=== PATIENT | female | born 1940 | race Caucasian/White ===

== ENCOUNTER 2019-04-07 01:03 | Emergency (ER) | payer MEDICARE, OTHER, SELFPAY ==
[2019-04-07 13:50] VITALS: BP 125/80; PULSE 90; RESP 20; TEMP 36.9; O2SAT 98
--- NOTE | 2019-04-07 15:18 | PC.NURSE ---
1420 provider with pt
--- NOTE | 2019-04-07 16:20 | ED.URI ---
HPI - URI/Sore Throat General Chief Complaint: Upper Respiratory Infection Stated Complaint: Cough/Rattling Time Seen by Provider: 04/07/19 14:15 Source: patient Mode of arrival: ambulatory Limitations: no limitations History of Present Illness HPI Narrative: Jania Hays is a 79 yo female with a PMH of depression, hypothyroid, COPD, HTN, who comes to the urgent care with complaints of ongoing cough and wheezing x10 days. Patient has a long history of COPD and lung disease; states that the prednisone Zithromax are usually given to her when her wheezing and cough continue for greater than 5 to 7 days Related Data Home Medications Medication Instructions Recorded Confirmed atorvastatin 04/07/19 ezetimibe mg 04/07/19 fluoxetine mg 04/07/19 fluoxetine mg 04/07/19 fluoxetine mg 04/07/19 levothyroxine 04/07/19 montelukast mg 04/07/19 montelukast mg 04/07/19 potassium chloride meq PO 04/07/19 potassium chloride meq PO 04/07/19 triamterene-hydrochlorothiazid tablet 04/07/19 Allergies Allergy/AdvReac Type Severity Reaction Status Date / Time hydrocodone Allergy Mild Nausea Verified 07/19/17 14:14 Review of Systems Review of Systems: Narrative: CONSTITUTIONAL: Denies fever, chills, sweats. EYES: Denies visual changes, redness, discharge. ENT: Denies rhinorrhea, has congestion, no sore throat, otalgia. CARDIOVASCULAR: Denies chest pain, palpitations, edema. RESPIRATORY: Has dyspnea, wheezing, cough GASTROINTESTINAL: Denies abdominal pain, nausea, vomiting, diarrhea. GENITOURINARY: Denies dysuria, hematuria, abnormal discharge SKIN: Denies rash or itching. MUSCULOSKELETAL: Denies acute back pain, joint pain, or myalgia. NEUROLOGIC: Denies numbness, or focal weakness. PSYCHIATRIC: Denies anxiety or depression. [facility] Family History Family History Other No active medical problems Social History Social History (Updated 04/07/19 @ 16:25 by Zelda Ramirez CNP) Second hand tobacco smoke exposure: Yes Alcohol intake: never Comments At time of signature, I agree with nursing past medical, surgical, social and family history. There is no relevant family history pertinent to the presenting complaint. Exam Narrative: Exam Narrative: GENERAL: This is a well-nourished, well-developed patient, in moderate distress. HEAD: normocephalic, atraumatic. EYES: Sclera clear/white. Vision is grossly intact. EARS: External ears normal, auditory canals clear and without drainage, TMs normal without perforation. Hearing grossly intact. NOSE: External nose normal with no obvious nasal discharge, nares without redness, no rhinorrhea. THROAT: Mucous membranes moist, posterior pharynx erythema. NECK: Neck supple, non-tender CARDIOVASCULAR: Regular rate and rhythm without murmurs, gallops, or rubs. RESPIRATORY: Diminished to auscultation. Breath sounds equal bilaterally. Diffuse wheezes, no rales, or rhonchi. GASTROINTESTINAL: Abdomen soft, non-tender, nondistended. Bowel sounds are active. SKIN: warm, intact with no suspicious lesions or rash, good texture and turgor. NEURO: awake, alert, and oriented to person, place and time. There were no obvious focal neurologic abnormalities. Steady gait EXTREMITIES: Normal range of motion. No edema. BACK: Nontender without deformity or crepitance. . Course Course Emergency Course: Unable to do chest x-ray are other treatments here as the system down Given patient prednisone Zithromax and Delsym To follow-up with primary care physician Vital Signs Vital signs: Vital Signs Temperature 98.4 F 04/07/19 13:50 Pulse Rate 90 04/07/19 13:50 Respiratory Rate 20 04/07/19 13:50 Blood Pressure 125/80 04/07/19 13:50 Pulse Oximetry 98 04/07/19 13:50 Temperature 98.4 F 04/07/19 13:50 Pulse Rate 90 04/07/19 13:50 Respiratory Rate 20 04/07/19 13:50 Blood Pressure 125/80 04/07/19 13:50 Pulse
== END 2019-04-07 14:45 | disposition home or self-care (01) ==
LOC: EXPCOLL 13:31
PROVIDERS: Emergency Provider Nurse Practitioner
DX: J40 Bronchitis, not specified as acute or chronic (principal); F32.9 Major depressive disorder, single episode, unspecified; E03.9 Hypothyroidism, unspecified; J44.9 Chronic obstructive pulmonary disease, unspecified; I10 Essential (primary) hypertension
CPT/HCPCS: 99213; G0463

== ENCOUNTER 2019-04-14 11:09 | Emergency (ER) | payer MEDICARE, OTHER, SELFPAY ==
[2019-04-14 11:22] VITALS: BP 128/80; PULSE 102; RESP 18; TEMP 36.2; O2SAT 100
--- NOTE | 2019-04-14 11:30 | ED.DIZZY ---
HPI - Dizziness General Chief Complaint: Dizziness Stated Complaint: Dizzy Time Seen by Provider: 04/14/19 11:31 Source: patient, family and RN notes reviewed Mode of arrival: ambulatory Limitations: no limitations History of Present Illness HPI Narrative: 79 year old female accompanied by friend presents to express care with complaints of dizziness and vertigo for the past 2 days. Patient states that she was treated for URI on the 07 of April with symptoms improved but ears feel full like she is in a tunnel, concerned she may have inner ear problem. Patient denies any headache pain, states some nausea when she experiences vertigo, usually is worse when she lyes down. Patient has history of hypertension and is on triamterene/HCTZ daily orthostatic blood pressures performed with drop in blood pressure noted with standing patient admits to not drinking fluids well. Patient has equal handgrips, speech is clear, she is alert and oriented, moves all extremities on own power, face is symmetrical, tongue is midline. MD elicited complaint: dizziness and vertigo Pertinent past history: inner ear problems and other (recent URI/bronchitis) Onset (ago): day(s) (2) Timing: gradual onset Severity: moderate Description: room spinning , lightheadedness and off-balance Context: recent illness History of similar symptoms: Yes (5 years ago) Exacerbating factors: movement/ambulation and position/lying down Relieving factors: rest and other (keeping head elevated helps) Associated symptoms: nausea, change in hearing, tinnitus and ear fullness Associated neuro symptoms: other (dizziness) Stroke scale total: 0 Related Data Home Medications Medication Instructions Recorded Confirmed atorvastatin 04/07/19 ezetimibe mg 04/07/19 fluoxetine mg 04/07/19 levothyroxine 04/07/19 montelukast mg 04/07/19 potassium chloride meq PO 04/07/19 triamterene-hydrochlorothiazid tablet 04/07/19 aspirin 04/14/19 budesonide-formoterol [Symbicort] INHALATION 04/14/19 04/14/19 magnesium 04/14/19 omeprazole 04/14/19 Allergies Allergy/AdvReac Type Severity Reaction Status Date / Time hydrocodone Allergy Mild Nausea Verified 07/19/17 14:14 Review of Systems Review of Systems: Narrative: CONSTITUTIONAL: Denies fever, chills, or sweats. EYES: Denies visual changes, redness, or discharge. ENT: Denies rhinorrhea, congestion, sore throat, or otalgia, states ears feel full, feels like in a tunnel CARDIOVASCULAR: Denies chest pain, palpitations, or edema. RESPIRATORY: Denies cough or dyspnea. GASTROINTESTINAL: Denies abdominal pain, occasional nausea, no vomiting, or diarrhea. GENITOURINARY: Denies dysuria or hematuria. SKIN: Denies rash or itching. MUSCULOSKELETAL: Denies back pain, joint pain, or myalgia. NEUROLOGIC: Denies headache, numbness, or weakness, room spinning when lying down,dizziness with position changes PSYCHIATRIC: Denies anxiety or depression. All systems reviewed & are unremarkable except as noted in HPI and below PMFSH Past Medical History Medical History (Updated 04/18/19 @ 10:50 by Amelia Hopkins NP) Bronchitis CAD (coronary artery disease) COPD mixed type Hypertension Hypothyroid Family History Family History Other No active medical problems Social History Social History (Updated 04/18/19 @ 10:38 by Amelia Hopkins NP) Second hand tobacco smoke exposure: Yes Alcohol intake: never Living arrangements: with family Occupation/Education: retired Gender identity (if verbalized by the patient): Female Comments At time of signature, agree with nursing past medical, social history. There is no relevant family history pertinent to the presenting complaint Exam Narrative: Exam Narrative: GENERAL: Well-appearing, well-nourished, and in no acute distress. HEAD: Normocephalic, atraumatic. EYES: PERRLA and EOMI. ENT: Nares clear, no rhinorrhea or epistaxi
[2019-04-14 12:04] VITALS: BP 129/73; PULSE 88
[2019-04-14 12:05] VITALS: BP 120/72; PULSE 97
[2019-04-14 12:06] VITALS: BP 99/69; PULSE 104
== END 2019-04-14 12:11 | disposition home or self-care (01) ==
PROVIDERS: Emergency Provider Registered Nurse
DX: I95.1 Orthostatic hypotension (principal); H83.09 Labyrinthitis, unspecified ear; I25.10 Atherosclerotic heart disease of native coronary artery without angina pectoris; I10 Essential (primary) hypertension; E03.9 Hypothyroidism, unspecified; J44.9 Chronic obstructive pulmonary disease, unspecified
CPT/HCPCS: 99213; G0463

== ENCOUNTER 2019-05-16 16:08 | Emergency (ER) | payer MEDICARE, OTHER, SELFPAY ==
--- NOTE | 2019-05-16 16:14 | ED.EAR ---
HPI - Ear Problem General Chief complaint: Ear Stated complaint: inner ear problems Time Seen by Provider: 05/16/19 16:24 Source: patient and RN notes reviewed Mode of arrival: ambulatory Limitations: no limitations History of Present Illness HPI Narrative: 79-year-old female presents with concern for itchy, full feeling left ear. Report symptoms for 3 to 4 days. She reports feeling of dizziness combined with ear fullness for which she took meclizine with no relief. She reports nasal congestion and rhinorrhea. She denies fever, malaise, chills, sweats, headache, ear discharge. MD Complaint: other (Ear fullness) Related Data Home Medications Medication Instructions Recorded Confirmed atorvastatin 04/07/19 ezetimibe mg 04/07/19 fluoxetine mg 04/07/19 levothyroxine 04/07/19 montelukast mg 04/07/19 potassium chloride meq PO 04/07/19 triamterene-hydrochlorothiazid tablet 04/07/19 aspirin 04/14/19 budesonide-formoterol [Symbicort] INHALATION 04/14/19 04/14/19 magnesium 04/14/19 omeprazole 04/14/19 Allergies Allergy/AdvReac Type Severity Reaction Status Date / Time hydrocodone Allergy Mild Nausea Verified 07/19/17 14:14 Review of Systems Review of Systems: Narrative: CONSTITUTIONAL: Denies malaise, chills, sweats, or fever. EYES: Denies visual changes, redness, or discharge. ENT: Reports rhinorrhea, ear fullness and itchiness, nasal congestion. Denies sinus pain and sore throat. CARDIOVASCULAR: Denies chest pain, palpitations, or edema. RESPIRATORY: Denies cough or dyspnea. GASTROINTESTINAL: Denies abdominal pain, nausea, vomiting, diarrhea SKIN: Denies rash or itching. MUSCULOSKELETAL: Denies myalgia. NEUROLOGIC: Denies headache. All systems reviewed & are unremarkable except as noted in HPI and below PMFSH Past Medical History Medical History (Updated 05/16/19 @ 16:34 by Mariela Kim NP) Bronchitis CAD (coronary artery disease) COPD mixed type Hypertension Hypothyroid Social History Social History (Updated 04/18/19 @ 10:38 by Amelia Hopkins NP) Second hand tobacco smoke exposure: Yes Alcohol intake: never Gender identity (if verbalized by the patient): Female Comments At time of signature, agree with nursing past medical, surgical, social and family history. There is no relevant family history pertinent to the presenting complaint Exam Narrative: Exam Narrative: GENERAL: Well-appearing, well-nourished, and in no acute distress. HEAD: Normocephalic EYES: PERRLA, conjunctivae clear ENT: Nares clear, turbinates edematous and erythematous, clear discharge. Mucous membranes moist. TM pearly kimble with dull light reflex and left otitis effusion; no tragal tenderness. Oropharynx not erythematous without lesions. Tonsils not enlarged and without exudate, no drooling, no hoarseness, no trismus, uvula midline. NECK: Supple. No lymphadenopathy CHEST: Clear to auscultation, breath sounds equal. No wheezing, rhonchi, rales, or stridor. No respiratory distress, speaks in full sentences. HEART: Regular rate and rhythm. No murmur heard. SKIN: Warm, dry, no rash. NEURO: Alert and oriented x3. PSYCH: Normal mood and affect Course Course Emergency Course: Patient is aware of diagnosis, understands and agrees to treatment plan. Anticipatory guidance given. Patient agrees to follow-up as directed and is aware of reasons to seek care at the emergency department. Portions of this record may have been created with voice recognition software Vital Signs Vital signs: Vital Signs Temperature 97.0 F L 05/16/19 16:21 Pulse Rate 88 05/16/19 16:21 Respiratory Rate 18 05/16/19 16:21 Blood Pressure 142/75 H 05/16/19 16:21 Pulse Oximetry 99 05/16/19 16:21 Temperature 97.0 F L 05/16/19 16:21 Pulse Rate 88 05/16/19 16:21 Respiratory Rate 18 05/16/19 16:21 Blood Pressure 142/75 H 05/16/19 16:21 Pulse Oximetry 99 05/16/19 16:21 Reviewed. Medical Decision Making [place] [facility]
[2019-05-16 16:21] VITALS: BP 142/75; PULSE 88; RESP 18; TEMP 36.1; O2SAT 99
== END 2019-05-16 16:39 | disposition home or self-care (01) ==
PROVIDERS: Emergency Provider Nurse Practitioner
DX: H93.92 Unspecified disorder of left ear (principal); I25.10 Atherosclerotic heart disease of native coronary artery without angina pectoris; J44.9 Chronic obstructive pulmonary disease, unspecified; I10 Essential (primary) hypertension; E03.9 Hypothyroidism, unspecified
CPT/HCPCS: 99211; G0463

== ENCOUNTER 2019-12-15 13:30 | Emergency (ER) | payer MEDICARE, OTHER, SELFPAY ==
--- NOTE | 2019-12-15 13:40 | ED.GENADULT ---
HPI - General Adult General Chief complaint: Dental/Oral Stated complaint: sores on gumline Time Seen by Provider: 12/15/19 13:41 Source: patient Mode of arrival: ambulatory Limitations: no limitations History of Present Illness HPI narrative: 79-year-old female patient presents to the [facility] with complaints of mouth sores to her gums for the past 10 days. Denies any fevers, body aches or chills. Denies any discharge coming from the sores. Denies any dental pain. Patient denies being sick recently. Patient states she has been under some stress recently due to recent events. Patient states she has been using some warm salt water to clean the areas with. Related Data Home Medications Medication Instructions Recorded Confirmed atorvastatin 80 mg PO DAILY 04/07/19 05/16/19 ezetimibe 10 mg PO DAILY 04/07/19 05/16/19 fluoxetine 20 mg PO DAILY 04/07/19 05/16/19 montelukast 10 mg PO DAILY 04/07/19 05/16/19 potassium chloride 10 meq PO DAILY 04/07/19 05/16/19 triamterene-hydrochlorothiazid 37.5 tablet PO DAILY 04/07/19 05/16/19 aspirin 81 mg PO DAILY 04/14/19 05/16/19 budesonide-formoterol [Symbicort] 160 inh INHALATION BID 04/14/19 05/16/19 magnesium 250 mg PO DAILY 04/14/19 05/16/19 omeprazole 20 mg PO DAILY 04/14/19 05/16/19 levothyroxine 125 mg PO DAILY 12/15/19 12/15/19 Allergies Allergy/AdvReac Type Severity Reaction Status Date / Time hydrocodone Allergy Mild Nausea Verified 07/19/17 14:14 Review of Systems Review of Systems: Narrative: CONSTITUTIONAL: Denies fever, chills, or sweats. EYES: Denies visual changes, redness, or discharge. ENT: Denies rhinorrhea, congestion, sore throat, or otalgia. Positive sores to mouth x10 days CARDIOVASCULAR: Denies chest pain, palpitations, or edema. RESPIRATORY: Denies cough or dyspnea. GASTROINTESTINAL: Denies abdominal pain, nausea, vomiting, or diarrhea. GENITOURINARY: Denies dysuria or hematuria. SKIN: Denies rash or itching. MUSCULOSKELETAL: Denies back pain, joint pain, or myalgia. NEUROLOGIC: Denies headache, numbness, or weakness. PSYCHIATRIC: Denies anxiety or depression. [facility] Past Medical History Medical History Bronchitis CAD (coronary artery disease) COPD mixed type Hypertension Hypothyroid Family History Family History Other No active medical problems Social History Social History Second hand tobacco smoke exposure: Yes Alcohol intake: never Gender identity (if verbalized by the patient): Female Comments At the time of my signature I agree with nursing past medical history, surgical, social, and family history. There is no relevant family history pertinent to the presenting complaint. Exam Narrative: Exam Narrative: GENERAL: Well-appearing, well-nourished, and in no acute distress. HEAD: Normocephalic, atraumatic. EYES: PERRLA and EOMI. ENT: Nares clear, no rhinorrhea or epistaxis. Mucous membranes moist. Patient has ulcers noted to the bottom left gumline with slight erythema as well as another ulcer noted to the middle of the upper gum. No dental caries noted. No dental abscesses noted. NECK: Supple. No lymphadenopathy CHEST: Clear to auscultation. No respiratory distress. HEART: Regular rate and rhythm. No murmur heard. Normal peripheral pulses. ABDOMEN: Soft, nontender, nondistended, normal active bowel sounds. EXTREMITIES: Normal range of motion. No edema. SKIN: Warm, dry, no rash. NEURO: No focal deficits. Alert and oriented x3. Course Vital Signs Vital signs: Vital Signs Temperature 36.6 C 12/15/19 13:42 Pulse Rate 100 12/15/19 13:42 Respiratory Rate 18 12/15/19 13:42 Blood Pressure 113/69 12/15/19 13:42 Pulse Oximetry 98 12/15/19 13:42 Temperature 36.6 C 12/15/19 13:42 Pulse Rate 100 12/15/19 13:42 Respiratory Rate 18 12/15/19 13:
[2019-12-15 13:42] VITALS: BP 113/69; PULSE 100; RESP 18; TEMP 36.6; O2SAT 98
== END 2019-12-15 14:01 | disposition home or self-care (01) ==
PROVIDERS: Emergency Provider Nurse Practitioner Family
DX: K12.0 Recurrent oral aphthae (principal); I51.0 Cardiac septal defect, acquired; J44.9 Chronic obstructive pulmonary disease, unspecified; I10 Essential (primary) hypertension; E03.9 Hypothyroidism, unspecified
CPT/HCPCS: 99211; G0463

== ENCOUNTER 2019-12-30 14:19 | Emergency (ER) | payer MEDICARE, OTHER, SELFPAY ==
[2019-12-30 14:30] VITALS: BP 133/72; PULSE 96; RESP 16; TEMP 36.8; O2SAT 98
--- NOTE | 2019-12-30 14:48 | ED.FEMALEGU ---
HPI - Female Genitourinary General Chief complaint: Urogenital-Female Stated complaint: UTI Time Seen by Provider: 12/30/19 14:43 Source: patient and RN notes reviewed Mode of arrival: ambulatory Limitations: no limitations History of Present Illness HPI Narrative: Patient presents today with a 4-day history of dysuria. She also sees white specks in her urine. Denies pelvic pain, back pain, fever, chills, hematuria, nausea or vomiting, urinary frequency. Denies history of frequent UTIs. She has been taking cranberry pills with some relief. MD elicited complaint: dysuria Related Data Home Medications Medication Instructions Recorded Confirmed atorvastatin 80 mg PO DAILY 04/07/19 12/30/19 ezetimibe 10 mg PO DAILY 04/07/19 12/30/19 fluoxetine 20 mg PO DAILY 04/07/19 12/30/19 montelukast 10 mg PO DAILY 04/07/19 12/30/19 potassium chloride 10 meq PO DAILY 04/07/19 12/30/19 triamterene-hydrochlorothiazid 37.5 tablet PO DAILY 04/07/19 12/30/19 aspirin 81 mg PO DAILY 04/14/19 12/30/19 budesonide-formoterol [Symbicort] 160 inh INHALATION BID 04/14/19 12/30/19 omeprazole 20 mg PO DAILY 04/14/19 12/30/19 levothyroxine [Euthyrox] 137 mcg PO DAILY 12/30/19 12/30/19 Allergies Allergy/AdvReac Type Severity Reaction Status Date / Time hydrocodone Allergy Mild Nausea Verified 07/19/17 14:14 Review of Systems Review of Systems: Narrative: CONSTITUTIONAL: Denies body aches, fever, chills, or sweats. EYES: Denies visual changes, redness, or discharge. ENT: Denies rhinorrhea, congestion, sore throat, or otalgia. CARDIOVASCULAR: Denies chest pain, palpitations, or edema. RESPIRATORY: Denies cough or dyspnea. GASTROINTESTINAL: Denies abdominal pain, nausea, vomiting, or diarrhea. GENITOURINARY: Denies hematuria. + Dysuria SKIN: Denies rash, itching, or wounds. MUSCULOSKELETAL: Denies back pain, joint pain, or myalgia. NEUROLOGIC: Denies headache, numbness, tingling, or weakness. PSYCH: Denies depression or anxiety. PMFSH Past Medical History Medical History Bronchitis CAD (coronary artery disease) COPD mixed type Hypertension Hypothyroid Family History Family History Other No active medical problems Social History Social History Second hand tobacco smoke exposure: Yes Alcohol intake: never Gender identity (if verbalized by the patient): Female Comments At time of signature, I have reviewed and agree with nursing past medical, surgical, social and family history unless otherwise noted. Please see nursing chart for further information. There is no relevant family history pertinent to the presenting complaint Exam Narrative: Exam Narrative: GENERAL: Well-appearing, well-nourished, and in no acute distress. HEAD: Normocephalic, atraumatic. EYES: EOMI. No redness or drainage. Conjunctivae normal. ENT: Mucous membranes pink and moist. NECK: Normal AROM. Supple. No lymphadenopathy. CHEST: No respiratory distress. Clear to auscultation. HEART: Regular rate and rhythm. No murmur appreciated. Normal peripheral pulses. ABDOMEN: Soft, nontender, nondistended, normal active bowel sounds. -CVAT MUSCULOSKELETAL: No bony tenderness. EXTREMITIES: Normal range of motion. No edema. SKIN: Warm, dry, no rash. Capillary refill normal. Normal skin turgor. NEURO: No focal deficits. Alert and oriented x3. Gait steady. PSYCH: Normal affect. No signs of depression or anxiety. Course Vital Signs Vital signs: Vital Signs Temperature 98.3 F 12/30/19 14:30 Pulse Rate 96 12/30/19 14:30 Respiratory Rate 16 12/30/19 14:30 Blood Pressure 133/72 12/30/19 14:30 Pulse Oximetry 98 12/30/19 14:30 Temperature 98.3 F 12/30/19 14:30 Pulse Rate 96 12/30/19 14:30 Respiratory Rate 16 12/30/19 14:30 Blood Pressure 133/72 12/30/19 14:30 Pulse Oxi
== END 2019-12-30 14:58 | disposition home or self-care (01) ==
PROVIDERS: Emergency Provider Nurse Practitioner
DX: N30.01 Acute cystitis with hematuria (principal); I10 Essential (primary) hypertension; E03.9 Hypothyroidism, unspecified; J44.9 Chronic obstructive pulmonary disease, unspecified; I25.10 Atherosclerotic heart disease of native coronary artery without angina pectoris; Z79.82 Long term (current) use of aspirin
CPT/HCPCS: 81003; 87077; 87086; 87088; 87186; 99213; G0463

== ENCOUNTER 2020-09-29 13:28 | Emergency (ER) | payer MEDICARE, SELFPAY ==
--- NOTE | ~2020-09-29 | XR_ITS ---
EXAMINATION: XR heel RT min 2V INDICATION: Right heel pain TECHNIQUE: Two views of the right heel are obtained. COMPARISON: None available FINDINGS: Bone alignment is normal. There is no fracture. Mild osteoarthritis is noted. There are pos terior and plantar calcaneal enthesophytes. IMPRESSION: 1. No acute osseous abnormality. Reviewed, dictated and finalized at location A.
[2020-09-29 13:44] VITALS: BP 114/71; PULSE 109; RESP 18; TEMP 36.3; O2SAT 97
--- NOTE | 2020-09-29 13:48 | PC.NURSE ---
in br to obtain ua spec.
--- NOTE | 2020-09-29 14:17 | ED.GENADULT ---
HPI - General Adult General Chief complaint: Urogenital-Female Stated complaint: right heel pain/uti Source: patient Mode of arrival: ambulatory Limitations: no limitations History of Present Illness HPI narrative: 80 y/o female. PMHx: Hypothyroid, GERD, HTN, HLD. Presents to [facility] today with acute complaints of urinary frequency, 'bladder pressure', and urgency for the past 48 hours. She denies fever, chills. No abdominal pain, Flank pain, dysuria, hematuria. No N/V. In addition to her urinary symptoms, client is concerned that her RT heel has been hurting her more when she walks . She denies acute falls or lower extremity trauma. No loss of lower extremity sensation or control. States the pain is aching type sensation. Improved when she rests her feet . Client is w/o additional acute c/o illness upon PE. Related Data Home Medications Medication Instructions Recorded Confirmed atorvastatin 80 mg PO DAILY 04/07/19 12/30/19 ezetimibe 10 mg PO DAILY 04/07/19 12/30/19 fluoxetine 20 mg PO DAILY 04/07/19 12/30/19 montelukast 10 mg PO DAILY 04/07/19 12/30/19 potassium chloride 10 meq PO DAILY 04/07/19 12/30/19 triamterene-hydrochlorothiazid 37.5 tablet PO DAILY 04/07/19 12/30/19 aspirin 81 mg PO DAILY 04/14/19 12/30/19 budesonide-formoterol [Symbicort] 160 inh INHALATION BID 04/14/19 12/30/19 omeprazole 20 mg PO DAILY 04/14/19 12/30/19 levothyroxine [Euthyrox] 137 mcg PO DAILY 12/30/19 12/30/19 Allergies Allergy/AdvReac Type Severity Reaction Status Date / Time hydrocodone Allergy Mild Nausea Verified 12/30/19 15:12 Review of Systems Review of Systems: CONSTITUTIONAL: Denies fever, chills, sweats. EYES: Denies visual changes, redness, discharge. ENT: Denies rhinorrhea, congestion, sore throat, otalgia. CARDIOVASCULAR: Denies chest pain, palpitations, edema. RESPIRATORY: Denies dyspnea, wheezing, cough GASTROINTESTINAL: Denies abdominal pain, nausea, vomiting, diarrhea. GENITOURINARY: Urinary frequency, urgency. Denies dysuria, hematuria, abnormal discharge SKIN: Denies rash or itching. MUSCULOSKELETAL: RT heel pain. Remainder negative. NEUROLOGIC: Denies numbness, or focal weakness. PSYCHIATRIC: Denies anxiety or depression. All systems reviewed & are unremarkable except as noted in HPI and below PMFSH Past Medical History Medical History Bronchitis CAD (coronary artery disease) COPD mixed type Hypertension Hypothyroid Family History Family History Other No active medical problems Social History Social History Second hand tobacco smoke exposure: Yes Alcohol intake: never Gender identity (if verbalized by the patient): Female Exam Narrative: GENERAL: This is a well-nourished, well-developed adult, in no apparent distress. HEAD: normocephalic, atraumatic. EYES: PERRL. Sclera clear/white. EARS: External ears normal, auditory canals clear and without drainage, TMs normal. NOSE: External nose normal. Positive Rhinorrhea, no obstruction, nares patent. THROAT: Mucous membranes moist, posterior pharynx clear. No exudates. NECK: Neck supple, non-tender without lymphadenopathy, masses or thyromegaly. CARDIOVASCULAR: Regular rate and rhythm without murmurs, gallops, or rubs. RESPIRATORY: Clear to auscultation. Breath sounds equal bilaterally. No wheezes, rales, or rhonchi. GASTROINTESTINAL: Abdomen soft, non-tender, nondistended. Bowel sounds are active. No guarding. SKIN: warm, intact with no suspicious lesions or rash, good texture and turgor. NEURO: No focal neurologic deficits. EXTREMITIES: Negative. MUSCULOSKELETAL: With mild point tenderness overlying RT calcaneus, plantar aspect. No discoloration. No deformity. Full flexion and extension of foot. Sensation and pedal pulses well. Course Course [facility]
[2020-09-29] MEDS: TRIAMCINOLONE ACET INJ 40 MG/ML VIAL IM (15:15)
== END 2020-09-29 15:53 | disposition home or self-care (01) ==
PROVIDERS: Emergency Provider Nurse Practitioner Adult Health
DX: N39.0 Urinary tract infection, site not specified (principal); S93.601A Unspecified sprain of right foot, initial encounter; X58.XXXA Exposure to other specified factors, initial encounter; I25.10 Atherosclerotic heart disease of native coronary artery without angina pectoris; J44.9 Chronic obstructive pulmonary disease, unspecified; I10 Essential (primary) hypertension; E03.9 Hypothyroidism, unspecified; K21.9 Gastro-esophageal reflux disease without esophagitis; E78.5 Hyperlipidemia, unspecified
CPT/HCPCS: 73650; 81003; 87086; 87088; 96372; 99213; G0463; J3301